=== PATIENT | female | born 1935 | race African-American/Black ===

== ENCOUNTER 2016-07-11 21:11 | Emergency (ER) | payer MEDICARE ==
[2016-07-11 20:20] LABS: BASOPHILS 0.4 %; BASOPHILS ABSOLUTE 0.02 10/3/uL (0.0-0.16); EOSINOPHILS 0.9 %; EOSINOPHILS ABSOLUTE 0.05 10/3/uL (0.0-0.53); IMMATURE GRANULOCYTES 0.2 %; IMMATURE GRANULOCYTES ABSOLUTE 0.01 10/3/uL (0.0-0.11); LYMPHOCYTES 17.3 %; LYMPHOCYTES ABSOLUTE 0.93 10/3/uL (0.67-4.30); MEAN CORPUSCULAR HEMOGLOB 30.6 pg (26.0-34.0); MEAN PLATELET VOLUME 9.2 fL (9.2-13.0); MONOCYTES 9.1 %; MONOCYTES ABSOLUTE 0.49 10/3/uL (0.21-1.20); NEUTROPHILS 72.1 %; NEUTROPHILS ABSOLUTE 3.88 10/3/uL (2.02-8.40); RBC DISTRIBUTION WIDTH 14.5 % (12.0-16.0)
[2016-07-11 20:21] LABS: ER CBC TAT 0 Hrs 09 Mins; HEMATOCRIT 29.3 % (36.0-48.0); HEMOGLOBIN 9.8 g/dL (12.0-16.0); MANUAL DIFF NO %; MEAN CORPUS HGB CONC 33.4 g/dL (32.0-36.0); MEAN CORPUSCULAR VOLUME 91.6 fL (80-100); PLATELET COUNT 107 10/3/uL (150-400); WHITE BLOOD CELLS 5.4 10/3/uL (4.5-10.5)
[2016-07-11 20:39] LABS: ALBUMIN 2.1 G/DL (3.5-5.0); CALCIUM, SERUM 7.8 MG/DL (8.5-10.4); CHLORIDE, SERUM 104 MMOL/L (96-112); GLUCOSE, SERUM 160 MG/DL (60-99); POTASSIUM, SERUM 4.7 MMOL/L (3.5-5.3); SGOT(AST) 31 U/L (5-40); SGPT(ALT) 28 U/L (5-65); SODIUM, SERUM 140 MMOL/L (135-148); TOTAL BILIRUBIN 1.3 MG/DL (0-1.2); TOTAL PROTEIN 6.2 G/DL (6.0-8.5)
[2016-07-11 20:41] LABS: A/G RATIO 0.5 (0.7-1.9); ALKALINE PHOSPHATASE 213 U/L (45-117); BUN (BLOOD UREA NITROGEN) 22 MG/DL (6-23); CO2 (CARBON DIOXIDE) 31 MMOL/L (24-34); CREATININE 3.11 MG/DL (0.55-1.02); GFR AFRICAN AMERICAN 16 ML/MIN (>=60); GFR NON AFRICAN AMERICAN 14 ML/MIN (>=60); GLOBULIN 4.1 G/DL (2.5-4.1)
[~2016-07-11 21:11] MED LIST: APRES50 PO; ASAB PO; BENTYL10 PO; CIP2 PO; COREG25 PO; DIOVAN320 MG PO; FLEX PO; FLORINEF0.1 MG PO; IMDUR30 PO; LEVEMIR SC; LISINOPRIL40 MG PO; LOM PO; MEGACEUDL PO; NITROSTAT0.4 MG PO; NORV10 PO; NOVOLIN SQ; NOVOLOG SC; NXL9 PO; PHOSLO PO; PLAVIX PO; QUESTRAN4 GM PO; RENAL SFTGLS1 MG OR; SENSIPAR30 MG PO; SENTAB PO; T PO; WELCHOL 625 MG625 MG OR; ZESTRIL30 MG PO
== END 2016-07-11 22:09 | disposition home or self-care (01) ==
LOC: ER 21:11
PROVIDERS: Emergency Medicine
DX: R09.02 Hypoxemia (principal); I13.2 Hypertensive heart and chronic kidney disease with heart failure and with stage 5 chronic kidney disease, or end stage renal disease; N18.6 End stage renal disease; I50.9 Heart failure, unspecified; E11.22 Type 2 diabetes mellitus with diabetic chronic kidney disease; D64.9 Anemia, unspecified; Z99.2 Dependence on renal dialysis; Z88.2 Allergy status to sulfonamides; Z88.5 Allergy status to narcotic agent; Z79.899 Other long term (current) drug therapy; Z79.82 Long term (current) use of aspirin; Z79.4 Long term (current) use of insulin; Z88.8 Allergy status to other drugs, medicaments and biological substances
CPT/HCPCS: 71010; 80053; 83735; 83880; 84484; 85025; 93005; 99285